=== PATIENT | female | born 1985 | race African-American/Black ===

== ENCOUNTER 2019-12-24 05:48 | Inpatient (IN) | payer OTHER, SELFPAY ==
[2019-12-24] VITALS (71 sets, daily range): BP systolic 99–136; BP diastolic 51–100; PULSE 25–126; RESP 15–19; TEMP 36.3–37.2; O2SAT 55–100; BMI 21.3
[2019-12-24] MEDS: LACTATED RINGERS 1,000 ML 125 ML IV CONT ×2 (06:36→07:27)
--- NOTE | 2019-12-24 06:45 | WPDANESEPPF ---
Anes - Initial Pre Proc Eval Procedure: Operation Date: 12/24/19 07:30 Proposed Procedures p Repeat Section - David Pagan MD Date/Time: 12/24/19 06:45 Surgeon: David Pagan MD Pre Op Diagnosis: c section Patient Data Age: 34 Gender: F Height: 1.55 m Weight: 51.3 kg Last Vital Signs Pulse 79 12/24/19 06:31 BP 108/60 12/24/19 06:31 Allergies Allergy/AdvReac Type Severity Reaction Status Date / Time Penicillins Allergy Hives Verified 11/14/19 13:38 Home Medications Medication Instructions Recorded Confirmed Type PNV cmb#95-ferrous fumarate-FA 1 tablet PO DAILY 11/14/19 12/24/19 History [] Vitamin D3 4,000 unit PO DAILY 11/14/19 12/24/19 History mrixxwgcaw-wljzhppqezxow-nnqt 1 cap PO Q4H PRN 11/14/19 12/24/19 History [Fioricet] ferrous sulfate [Feosol] 325 mg PO DAILY 11/14/19 12/24/19 History Patient hx anesthesia problems: none Family hx anesthesia problems: none PMFSH Past Medical History Medical History (Updated 12/24/19 @ 06:48 by Patric Malcolm MD) Asthma As a child, no issues now per pt Leiomyoma Migraine Surgical History Surgical History (Updated 12/24/19 @ 06:48 by Patric Malcolm MD) History of right oophorectomy Previous section Family History Family History (Updated 12/02/19 @ 14:49 by Shari Roman RN) Other Unknown family medical history Social History Social History Substance use: never Gender identity (if verbalized by the patient): Female Spiritual care concerns: No Anes - Eval Final PreProcedure Day of Procedure 12/24/19 06:45 Patient weight: normal Heart: regular rate and rhythm Lungs: clear to auscultation and normal air movement Airway: Mallampati scale class II Neurological: alert and oriented Last oral intake: >/= 8 hours ASA classification: II Emergent: no Anesthetic plan: proceed Anesthesia type and monitoring: regional spinal Informed Consent: The patient's anesthetic plan and its attendant risks and benefits were discussed with the patient/family/POA. Questions were solicited and answers provided to the satisfaction of the patient/family/POA.
--- NOTE | 2019-12-24 07:21 | P.HP_ITS ---
H&P: HPI History of Present Illness Chief complaint: Dizzy/Lightheaded Narrative: Lizzy Wilson is a 34 year old female @ 39 weeks scheduled for a repeat csection. Patient complicated by history of asthma, and right oopherectomy. Patient has a 4 cm fibroid present. Patient reports movement. [facility] Past Medical History Medical History Asthma As a child, no issues now per pt Leiomyoma Migraine Surgical History Surgical History History of right oophorectomy Previous section Family History Family History Other Unknown family medical history Social History Social History Substance use: never Gender identity (if verbalized by the patient): Female Spiritual care concerns: No Meds Home Medications and Allergies Home Medications Medication Instructions Recorded Confirmed Type PNV cmb#95-ferrous fumarate-FA 1 tablet PO DAILY 11/14/19 12/24/19 History [] Vitamin D3 4,000 unit PO DAILY 11/14/19 12/24/19 History lhjcbwhufb-qiblbqegxsiyd-xkal 1 cap PO Q4H PRN 11/14/19 12/24/19 History [Fioricet] ferrous sulfate [Feosol] 325 mg PO DAILY 11/14/19 12/24/19 History Allergies Allergy/AdvReac Type Severity Reaction Status Date / Time Penicillins Allergy Hives Verified 11/14/19 13:38 Exam Const: General: no acute distress Resp: Auscultation: clear to auscultation bilaterally Cardio: Rate: regular rate Rhythm: regular rhythm GI: GI Palp: Yes Soft to palpation : External Female Exam: normal external appearance Assessment and Plan Assessment and plan (1) Previous section: Code(s): Z98.891 - History of uterine scar from previous surgery Status: Acute Assessment and Plan: Scheduled for a repeat csection. Risk and benefits reviewed with patient in detail including bleeding, infection, trauma, and anesthesia. Patient agrees to proceed with surgery.
[2019-12-24] MEDS: CLINDAMYCIN 900 MG/NS 50 ML 900 MG/50 ML PIGGYBACK 50 MG IVPB (07:27)
--- NOTE | 2019-12-24 08:24 | P.PCNOB_ITS ---
OB - Delivery Note Procedure Delivery date: 12/24/19 Procedure: Procedures Operation Date: 12/24/19 07:30 <No data on this case meets the specified criteria> repeat csection events: Previous Intrapartal events: None Route of delivery: Estimated blood loss (mL): 445 Anesthesia type: Spinal Disposition: floor [place] Baby Date of : 12/24/19 Time of : 07:52 Weeks of gestation at delivery: 39 gender: Female Weight (pounds): 7 Weight (ounces): 4 presentation: vertex position: Left Occiput Anterior Placenta delivery description: Spontaneous cord vessel description: 3 Vessels, Clamped/Cut and Around Extremity x1 score one minute: 9 score five minutes: 9
--- NOTE | 2019-12-24 08:53 | LDADM ---
This patient, Lizzy Wilson, was admitted to Labor/Delivery/Recovery 120 on 12/24/19 at 05:48. Plans for scheduled section, pain management and were discussed with patient. Patient/family oriented to hospital policies and general routines including ID bracelet, bed and alarms, visiting hours, pain management, procedures, bathroom and other care routines, personal items, smoking policy, room service/diet and guest tray routines, security routines, and visiting hours. Patient/Family are encouraged to report perceived risks to care and to ask questions if they do not understand what they are told or what they should do. See OBIX for further documentation.
[2019-12-24] MEDS: HYDROMORPHONE HCL 1 MG/ML INJ 0.25 MG IV PUSH ×3 (09:42→10:07)
--- NOTE | 2019-12-24 10:53 | PC.NURSE ---
Patient transferred to post room #290 via stretcher. Support person present. Oriented to unit, room, information board, rooming in, admission packet and security measures. Patient verbalizes understanding.
[2019-12-24] MEDS: KETOROLAC 30 MG/ML VIAL (*BKC) IV PUSH (11:09)
[2019-12-24] MEDS: ONDANSETRON INJ 4 MG/2 ML VIAL IV PUSH (12:08)
--- NOTE | 2019-12-24 13:30 | PC.NURSE ---
Consulted with patient, mother reports tenderness with feeding. Mother has latched to breast with shallow latch. Reviewed infant feeding cues, frequencies, duration of feedings, feeding elimination flow sheet, and signs of adequate intake. Reviewed positioning/alignment in cross cradle, holding breast in U hold and guided asymmetrical latch on. was able to latch correctly. Infant nursed eagerly, with steady draws and frequent swallowing noted. Reviewed signs of a correct latch, effective nursing and suck swallow ratio. was able to maintain latch without discomfort to mother. Nipple care reviewed. Instructed mother to call out for RN assistance if she is unable to latch for feeding or she has discomfort with nursing. Instructed feeding should be initiated three hours from start of last feeding or if feeding cues are noted before. Mother voiced understanding of information shared.
[2019-12-24] MEDS: DEXTROSE 5%/0.45% SOD CHL 1,000 ML 125 ML IV CONT (15:07)
[2019-12-24] MEDS: IBUPROFEN 600 MG TABLET PO (23:33)
[2019-12-25 04:30] VITALS: BP 106/70; PULSE 72; RESP 16; TEMP 36.9; O2SAT 100
[2019-12-25 05:25] LABS: Basophils Percent Auto 0.3 % (0.2-1.2); Eosinophils Absolute Auto 0.1 K/mm3 (0-0.3); Eosinophils Percent Auto 1.6 % (0-4.4); Hematocrit 26.7 % (37.0-47.0); Hemoglobin 8.8 g/dL (12.0-15.0); Immature Granulocyte Absolute 0.03 K/mm3 (0.00-0.031); Immature Granulocyte Percent A 0.4 % (0-0.5); Lymphocytes Absolute Auto 1.54 K/mm3 (0.9-3.2); Lymphocytes Percent Auto 20.5 % (18.3-44.2); Mean Corpuscular Volume 103.1 fl (80-100); Mean Platelet Volume 9.9 fl (7.4-10.4); Monocytes Absolute Auto 0.8 K/mm3 (0.1-0.6); Monocytes Percent Auto 10.4 % (2.6-8.5); Neutrophils Percent Auto 66.8 % (45.5-73.1); Nucleated Red Blood Cells Perc 0.3 % (0.0-0.2); Platelet Count Result 154 k/mm3 (150-375); Red Blood Count 2.59 M/mm3 (4.2-5.4); Red Cell Distribution Width 13.2 % (11.5-14.5); White Blood Count 7.5 K/mm3 (4.5-10.0)
[2019-12-25] MEDS: IBUPROFEN 600 MG TABLET PO ×3 (06:30→20:06)
[2019-12-25] MEDS: SIMETHICONE 80 MG TAB.CHEW PO ×5 (06:31→20:05)
[2019-12-25] MEDS: DOCUSATE SODIUM 100 MG CAPSULE PO (06:31)
[2019-12-25] MEDS: MULTIVIT/MIN/PREN/FOL AC/IRON TABLET 1 TAB PO (06:31)
[2019-12-25 06:45] VITALS: BP 115/72; PULSE 90; RESP 16; TEMP 36.7; O2SAT 99
--- NOTE | 2019-12-25 06:59 | OP_ITS ---
DATE OF PROCEDURE: 12/24/2019 PREOPERATIVE DIAGNOSIS: Repeat section. POSTOPERATIVE DIAGNOSIS: Repeat section. PROCEDURE PERFORMED: Repeat section. ANESTHESIA: Spinal. COMPLICATIONS: None. ESTIMATED BLOOD LOSS: 425 cc. FINDINGS: Female infant in cephalic presentation. Apgars 9 and 9. Weight 7 pounds 4 ounces. DESCRIPTION OF PROCEDURE: The patient was taken to the operating room, she was placed in a supine position with a leftward tilt. A Pfannenstiel skin incision was then made with a scalpel carried down to the underlying layer of fascia. This fascial incision was then extended bilaterally with Mas scissors. The superior aspect of the incision was grasped with Lola clamps, elevated, and tented off the rectus muscles. Inferior aspect of this incision was grasped with Lola clamps, dissected off the rectus muscles. Rectus muscles were in the midline. The peritoneum was grabbed with peans, entered sharply with Metzenbaum scissors. Bladder blade was reinserted. The peritoneum was then grasped with peans. Bladder flap was created sharply and digitally. Bladder blade was reinserted. Lower uterine segment was incised in a transverse fashion and extended bluntly. The head was delivered atraumatically and the remainder of the fetus was delivered. Cord noted around foot x1. Cord was clamped and cut. Fetus handed off to the waiting nurse. Cord gas was obtained. Cord blood obtained. Placenta delivered spontaneously. The uterus was unable to be exteriorized due to an anterior adhesion of the uterus to the abdominal wall. The uterine incision was closed with 0 Monocryl in a running, locked fashion after the uterus was cleared of all clot and debris. A 2nd layer of the same suture was used to imbricate this uterine incision and a mmmclz-ku-bwkto was placed for hemostasis on the corner of the incision. The gutters were cleared of all clot and debris and irrigated. The Interceed was placed over the uterine incision in a T-fashion. Muscles were examined for hemostasis and the fascia was closed with 0 Vicryl suture in a running fashion. Subcutaneous tissue was irrigated. Hemostasis assured. The skin was closed with 4-0 Vicryl on a Chaim needle. Sponge, lap, and needle counts were correct x2. The patient received clindamycin and gentamicin prior to skin incision. D I MT: [facility]
[2019-12-25] MEDS: POLYSACCHARIDE IRON COMPLEX 150 MG CAPSULE PO (07:23)
[2019-12-25] MEDS: ACETAMINOPHEN 325 MG TABLET 650 MG PO (10:37)
--- NOTE | 2019-12-25 13:44 | WPDANLDPN2 ---
Anes-Prog Note L&D Date/Time: 12/25/19 13:44 Comfortable throughout: section Neuraxial method: spinal Epidural/Spinal procedure site: clean & non-tender Neuro status: Neuro function grossly intact. Cardiovascular status: normal Respiratory status: normal Airway patency: baseline Mental status: baseline Post-Op hydration status: normal Vital Signs: Last Vital Signs Temp 98.0 F 12/25/19 06:45 Pulse 90 12/25/19 06:45 Resp 16 12/25/19 06:45 BP 115/72 12/25/19 06:45 Pulse Ox 99 12/25/19 06:45 I/O: Intake & Output 12/24/19 12/25/19 12/25/19 23:59 07:59 15:59 Intake Total 1280 Output Total 2225 1800 Balance -945 -1800 Post-procedural complaints: none Patient feedback: Patient satisfied with anesthetic care.
--- NOTE | 2019-12-25 13:46 | WPDANLDNPN2 ---
Anes-Prog Note L&D-Neuraxial Date/Time: 12/25/19 13:46 Neuraxial medications: intrathecal PF morphine Opiod-related complaints: none Patient feedback: Patient satisfied with post-operative pain management.
[2019-12-25 20:00] VITALS: BP 109/45; PULSE 93; RESP 16; TEMP 37.1; O2SAT 100
[2019-12-26] MEDS: SIMETHICONE 80 MG TAB.CHEW PO ×3 (02:28→10:47)
[2019-12-26] MEDS: IBUPROFEN 600 MG TABLET PO ×2 (02:29→10:45)
[2019-12-26] MEDS: MULTIVIT/MIN/PREN/FOL AC/IRON TABLET 1 TAB PO (07:17)
[2019-12-26] MEDS: POLYSACCHARIDE IRON COMPLEX 150 MG CAPSULE PO (07:17)
[2019-12-26] MEDS: DOCUSATE SODIUM 100 MG CAPSULE PO (07:17)
[2019-12-26 08:23] VITALS: BP 107/70; PULSE 82; RESP 18; TEMP 36.9; O2SAT 100
--- NOTE | 2019-12-26 13:00 | PC.NURSE ---
Mother is able to independently latch infant with appropriate positioning/alignment. She denies any nipple discomfort, is feeding as required and waking to feed if needed. has had 9 effective feedings in the past 24 hours, and is currently meeting outcomes for weight, output, jaundice and feeding frequencies. Mother states she feels confident to continue effective at home. Reviewed transition to breast milk, signs of adequate intake, and engorgement/relief. Instructed to call ICP if intake/output less than required. Reviewed regular medications mother is taking. Information provided per Anel. Reviewed community resources on the [facility] website and in the Mom/Baby guide. Information on outpatient services provided. Mother has no further questions at this time.
--- NOTE | 2019-12-26 14:08 | PC.NURSE ---
Patient was given the opportunity to view the discharge video Mother & Baby Care, The First Two Weeks and to ask questions. Patient declined viewing the video and has been given the mother/baby guide for home reference. Mother has a three year old at home and states she is comfortable with infant care.
[2019-12-27 10:39] VITALS: BP 95/50; PULSE 83; RESP 18; TEMP 36.7
--- NOTE | 2020-01-16 09:30 | PM.OBDSVD ---
DS: Diagnosis Admitting Diagnosis Admitting Diagnosis: Encounter for supervision of normal , unspecified, third trimester OB - DS: Summary OB Procedures : None OB Procedures Intrapartum: OB Procedures: : None Peripartum Data Infant Delivery Method: Section Procedures: Procedures Operation Date: 12/24/19 07:30 Actual Procedures Side Surgeon p Section David Pagan MD complications: none Status at Discharge Functional status at discharge: independent ambulation Overall status at discharge: patient is progressing back to baseline Time Spent with Patient Time attestation: Total time spent providing and/or coordinating discharge services: Discharge Plan Discharge Attending physician on discharge: David Pagan Consulting providers: Patric Malcolm Discharging Clinician: David Pagan Patient Disposition: Home, Self-Care Activity: may shower Diet: as tolerated Wound Care Instructions: incision open to air Discharge Instructions: Education: Mom and Baby Guide Given to: Mother Follow-Up: Call your delivering provider's office for an appointment to be seen in: 4 Weeks Mom and baby should come to the [facility] for the follow-up appointment. Appointment Date/Time: December 27, 2019 at 10:00 am What to expect at your follow-up visit: Blood Pressure Check Physical Assessment Call [phone] if you are unable to keep your appointment time. BREAST CARE: 1. Wear a snug supportive bra. 2. For engorgement discomfort: Breast Feeding: A. Apply warm moist washcloths B. Express milk as needed to relieve engorgement C. Wear loose clothing 3. For sore nipples: A. Identify correct latch-on B. Apply warm moist washcloths before and after nursing C. Air dry nipples after nursing D. May apply Lansinoh cream to nipples ABDOMINAL INCISION: (if applicable) 1. Allow incision to air dry 2. Do NOT use lotions for powders on your incision 3. When showering, allow soap and water to run over the incision, but do not wash incision EPISIOTOMY/PERINEAL CARE: 1. Until bleeding stops, use your raul bottle after urinating 2. Change your pad frequently throughout the day 3. No tub baths until seen by your physician - You may shower ACTIVITY: 1. Rest as much as possible. 2. Do not exercise or lift anything heavier than your baby (such as laundry or other children.) 3. Avoid stairs or driving as much as possible. 4. Do not put anything into the vagina. No douching, tampons, or sexual activity until seen by physician. NOTIFY PHYSICIAN IF YOU HAVE ANY QUESTIONS OR IF ANY OF THE FOLLOWING SYMPTOMS OCCUR: 1. If your incision becomes red, swollen, or more painful than what you have experienced in the hospital. 2. If your vaginal bleeding becomes foul smelling. 3. If your vaginal bleeding becomes more heavy than a period or if your bleeding changes from pink to bright red. However, you may pass an occasional walnut-sized clot once or twice for the first week . 4. If you experience a sharp, shooting pain in your calves. 5. If you discover a hard, reddened area on your breast or if you experience flu-like symptoms. DIET: 1. Eat regular, well-balanced meals. 2. Drink plenty of fluids daily. If , drink to thirst. Stand Alone Forms: General Discharge Information Follow-up/Referrals: David Pagan MD [Physician] - 4 Weeks Discharge Medications: New hydrocodone-acetaminophen 5-325 mg Tablet 1 tab PO Q3H PRN (Reason: Moderate Pain (4-6)) Qty: 30 RF: 0 Continued PNV cmb#95-ferrous fumarate-FA [] 28 mg iron- 800 mcg Tablet 1 tablet PO DAILY RF: 0 Vitamin D3 4,000 unit Capsule 4,000 unit PO DAILY RF: 0 ferrous sulfate [Feosol] 325 mg (65 mg iron) Tablet 325 mg PO DAILY RF: 0
== END 2019-12-26 14:40 | disposition home or self-care (01) | DRG 788 ==
LOC: ANHLDR 07:29 → ANHOB2 10:52
PROVIDERS: Admitting Provider Obstetrics & Gynecology; Visit Provider Obstetrics & Gynecology
PROC: 10D00Z1 Extraction of Products of Conception, Low, Open Approach (ICD-10-PCS; CPT 59514; principal; 2019-12-24 07:30)
DX: O34.211 Maternal care for low transverse scar from previous cesarean delivery (principal); Z37.0 Single live birth; Z3A.39 39 weeks gestation of pregnancy; O69.82X0 Labor and delivery complicated by other cord entanglement, without compression, not applicable or unspecified; O99.52 Diseases of the respiratory system complicating childbirth; J45.909 Unspecified asthma, uncomplicated
CPT/HCPCS: 36415; 85025; A9270; J0131; J1170; J1200; J1885; J2274; J2405; J2590; J7120

== ENCOUNTER 2024-01-30 12:33 | Emergency (ER) | payer BC, SELFPAY ==
--- NOTE | 2024-01-30 12:43 | ED.URI ---
HPI - URI/Sore Throat General Chief Complaint: Upper Respiratory Infection Stated Complaint: Cold Symptoms Source: patient and RN notes reviewed Mode of arrival: ambulatory Limitations: no limitations History of Present Illness HPI Narrative: Patient is a 38-year-old female who presents to the [facility] with generalized fatigue and chills. Patient states that she has multiple coworkers who have been ill with the flu and other illnesses. Patient states that she is concerned that she may be starting to get sick. She denies recent cough, sore throat, fever. Denies chest pain or shortness of breath. Denies abdominal pain, nausea, vomiting, diarrhea. Related Data Home Medications Medication Instructions Recorded Confirmed norgestimate 0.18 mg/0.215 mg/0.25 1 tablet PO DAILY 01/30/24 01/30/24 mg-ethinyl estradiol 25 mcg tablet (Tri-Lo-Sumaya) Allergies Allergy/AdvReac Type Severity Reaction Status Date / Time Penicillins Allergy Hives Verified 01/30/24 12:41 Review of Systems Review of Systems: CONSTITUTIONAL: Denies fever or sweats. Reports fatigue and chills. EYES: Denies visual changes, redness, or discharge. ENT: Denies otalgia and sore throat CARDIOVASCULAR: Denies chest pain, palpitations, or edema. RESPIRATORY: Denies cough or dyspnea. GASTROINTESTINAL: Denies abdominal pain, nausea, vomiting, or diarrhea. GENITOURINARY: Denies dysuria or hematuria. SKIN: Denies rash or itching. MUSCULOSKELETAL: Denies back pain, joint pain, or myalgia. NEUROLOGIC: Denies headache, numbness, or weakness. Pertinent positives per HPI. [facility] Past Medical History Medical History (Updated 01/30/24 @ 13:04 by Inés Dumont APRN) Asthma As a child, no issues now per pt Leiomyoma Migraine Surgical History Surgical History History of right oophorectomy Previous section Family History Family History Other Unknown family medical history Social History Social History Smoking status: Never smoker Second hand tobacco smoke exposure: No Substance use: never Gender identity (if verbalized by the patient): Female Spiritual care concerns: No Comments At the time of my signature, I reviewed and agree with the nursing past medical, surgical, social, and family history. There is no relevant family history pertinent to the patient complaint. Exam Narrative: GENERAL: This is a well-nourished, well-developed patient, in no apparent distress. HEAD: normocephalic, atraumatic. EYES: Sclera clear/white. Vision is grossly intact. EARS: External ears normal. Hearing grossly intact. NOSE: External nose normal with no obvious nasal discharge, nares without redness, no rhinorrhea. THROAT: Mucous membranes moist, posterior pharynx clear. NECK: Neck supple, non-tender without lymphadenopathy, masses or thyromegaly. CARDIOVASCULAR: Regular rate and rhythm without murmurs, gallops, or rubs. RESPIRATORY: Clear to auscultation. Breath sounds equal bilaterally. No wheezes, rales, or rhonchi. GASTROINTESTINAL: Abdomen soft, non-tender, nondistended. Bowel sounds are active. No hepato-splenomegaly, or palpable masses. No guarding. SKIN: warm, intact with no suspicious lesions or rash, good texture and turgor. NEURO: awake, alert, and oriented to person, place and time. There were no obvious focal neurologic abnormalities. Course Course Level of Care: Express Care Visit Vital Signs Vital signs: Vital Signs Temperature 98.7 F 01/30/24 13:02 Pulse Rate 67 01/30/24 13:02 Respiratory Rate 16 01/30/24 13:02 Blood Pressure 131/79 01/30/24 13:02 Pulse Oximetry 99 01/30/24 13:02 Temperature 98.7 F 01/30/24 13:02 Pulse Rate 67 01/30/24 13:02 Respiratory Rate 16 01/30/24 13:02 Blood Pressure 131/79
[2024-01-30 13:02] VITALS: BP 131/79; PULSE 67; RESP 16; TEMP 37.1; O2SAT 99
== END 2024-01-30 13:05 | disposition home or self-care (01) ==
PROVIDERS: Emergency Provider Nurse Practitioner
DX: B34.9 Viral infection, unspecified (principal); Z20.822 Contact with and (suspected) exposure to COVID-19
CPT/HCPCS: 87426; 87804; 99203; G0463

== ENCOUNTER 2025-11-14 09:28 | Emergency (ER) | payer BC, SELFPAY ==
[2025-11-14 09:44] VITALS: BP 105/65; PULSE 77; RESP 16; TEMP 36.9; O2SAT 100
--- NOTE | 2025-11-14 10:44 | ED_ITS ---
HPI - Ear Problem General Chief complaint: Ear Stated complaint: R ear pain Time Seen by Provider: 11/14/25 10:30 Source: patient and RN notes reviewed Mode of arrival: ambulatory Limitations: no limitations History of Present Illness HPI Narrative: 40-year-old female presents [facility] complaining of right ear pain for last 2 weeks. Patient said it has been intermittent over the last 2 weeks. Base of the last 2 3 days it has gotten more constant worse. She denies any upper respiratory symptoms, dizziness, lightheadedness, or tinnitus, fevers, any other symptoms. Patient has been taking help with symptoms. Related Data Home Medications ?Medication ?Instructions ?Recorded ?Confirmed ?Last Taken ?Type norgestimate 0.18 mg/0.215mg/0.25 1 tablet PO DAILY 01/30/24 Unknown History mg-ethinyl estradiol 0.025 mg tablet (Tri-Lo-Sumaya) Allergies Allergy/AdvReac Type Severity Reaction Status Date / Time Penicillins Allergy Hives Verified 11/14/25 09:48 Review of Systems Review of Systems: CONSTITUTIONAL: Denies fever, chills, or sweats. EYES: Denies visual changes, redness, or discharge. ENT: Denies rhinorrhea, congestion, sore throat,. Positive for otalgia. CARDIOVASCULAR: Denies chest pain, palpitations, or edema. RESPIRATORY: Denies cough or dyspnea. GASTROINTESTINAL: Denies abdominal pain, nausea, vomiting, or diarrhea. GENITOURINARY: Denies dysuria or hematuria. SKIN: Denies rash or itching. MUSCULOSKELETAL: Denies back pain, joint pain, or myalgia. NEUROLOGIC: Denies headache, numbness, or weakness. PSYCHIATRIC: Denies anxiety or depression. All other systems reviewed are negative, except as documented in HPI. ON LICENSE OF [facility] Past Medical History Medical History Leiomyoma Asthma As a child, no issues now per pt Migraine Surgical History Surgical History History of right oophorectomy Previous section Family History Family History Other Unknown family medical history Social History Social History Smoking status: Never smoker Second hand tobacco smoke exposure: No Substance use: never Gender identity (if verbalized by the patient): Female Spiritual care concerns: No Comments At the time of my signature, I reviewed and agree with the nursing past medical, surgical, social, and family history. There is no relevant family history pertinent to the patient complaint. Exam Narrative: GENERAL: This is a well-nourished, well-developed adult, in no apparent distress. They are non ill-appearing, nontoxic appearing. HEAD: normocephalic, atraumatic. EYES: Sclera clear/white. Conjunctiva normal. Vision is grossly intact. Extraocular movements intact EARS: External ears normal, left auditory canals clear and without drainage, right auditory canal erythemic without swelling, no drainage. TMs normal without perforation. Hearing grossly intact. NOSE: External nose normal with no obvious nasal discharge, nasal turbinates without redness, no rhinorrhea. THROAT: Mucous membranes moist, posterior pharynx clear, without erythema or swelling. Uvula midline. NECK: Neck supple, non-tender without lymphadenopathy, masses or thyromegaly. CARDIOVASCULAR: Regular rate and rhythm RESPIRATORY: Respiratory rate normal, respiratory effort nonlabored, no respiratory distress SKIN: warm, Dry, intact with no suspicious lesions or rash, good texture and turgor. NEURO: awake, alert, and oriented to person, place and time. There were no obvious focal neurologic abnormalities. EXTREMITIES: No joint tenderness, effusion, or edema noted. BACK: Nontender without deformity. Course Course Level of Care: Express Care Visit Vital Signs Vital signs: Vital Signs Temperature 98.5 F 11/14/25 09:44 Pulse Rate 77 11/14/25 09:44 Respiratory Rate 16 11/14/25 09:44 Blood Pressure 105/65 11/14/25 09:44 Pulse Oximetry 100 11/14/25 09:44 Temperature 98.5 F 11/14/25 09:44 Pulse Rate 77 11/14/25 09:44 Respiratory Rate 16 11/14/25 09:44 Blood Pressure 105/65 11/14/25 09:44 Pulse Oximetry 100 11/14/25 09:44 [facility] MDM Narrative Medical decision making narrative: Appears patient has a mild right-sided otitis externa will treat with ofloxacin ear drops. Discussed physical exam findings. Advised supportive measures and signs/symptoms to go to the ER. Pt is appropriate for outpt treatment and f/u. Differential Diagnosis Differential Diagnosis: Otitis media, otitis externa, upper respiratory infection Critical Care Time Critical Care Time Critical Care Time: No Discharge Plan Discharge Clinical Impression: Otitis externa Qualifiers: Otitis externa type: diffuse Chronicity: acute Laterality: right Qualified Code(s): H60.311 - Diffuse otitis externa, right ear Patient Disposition: Home Condition: Stable Instructions: Antibiotic Form, Ear Infection (ED) Additional Instructions: Take antibiotic drops as directed. Tylenol and ibuprofen as needed for pain and fevers. Avoid water or anything into the ear for one week Follow up with your personal physician for further evaluation and treatment within 3-5days. If your symptoms persist, change or worsen significantly, go to the emergency department for further evaluation. Patient Language: Maltese Prescriptions: New ofloxacin 0.3 % drops 10 drp RIGHT EAR DAILY 7 Days Qty: 10 0RF No Action norgestimate-ethinyl estradiol [Tri-Lo-Sumaya] 0.18/0.215/0.25 mg-25 mcg tablet 1 tablet PO DAILY Follow-up/Referrals: UNKNOWN,DOCTOR [Primary Care Provider] Time of Disposition: 10:41
== END 2025-11-14 10:45 | disposition home or self-care (01) ==
DX: H60.311 Diffuse otitis externa, right ear (principal)
CPT/HCPCS: 99213; G0463